=== PATIENT | male | born 1995 | race Caucasian/White ===

== ENCOUNTER 2019-11-25 15:14 | Emergency (ER) | payer OTHER, SELFPAY ==
[2019-11-25 15:15] VITALS: BP 123/79; PULSE 89; RESP 16; TEMP 36.8; O2SAT 98; BMI 31.3
--- NOTE | 2019-11-25 15:23 | XR_ITS ---
PROCEDURE: XR CHEST PORTABLE CLINICAL HISTORY: cough/respiratory symptoms COMPARISON: No exams were available for comparison FINDINGS: The cardiomediastinal silhouette and pulmonary vascularity are within normal limits. The lungs are clear without infiltrates, suspicious nodules, or pleural effusions. No acute bony abnormalities. IMPRESSION: No acute findings. Dictated by: Nura Magaña MD 11/25/2019 16:11 Electronically signed by Nura Magaña MD in [place] 11/25/2019 16:11
[2019-11-25 15:35] LABS: Basophils % 0.4 % (0.1-2.0); Eosinophils # 0.1 K/mm3 (0.0-0.4); Eosinophils % 1.1 % (0.1-12.0); Hematocrit 38.2 % (42.0-52.0); Hemoglobin 14.8 g/dL (14.1-18.0); Lymphocytes # 3.7 K/mm3 (0.7-4.5); Lymphocytes % 42.7 % (10-50); Mean Corpuscular HGB Conc 38.7 g/dL (31.8-35.4); Mean Corpuscular Hemoglobin 33.7 pg (27.0-31.2); Mean Corpuscular Volume 86.9 fl (80-94); Monocytes # 0.7 K/mm3 (0.1-1.0); Monocytes % 8.5 % (1.7-9.3); Neutrophils # 4.1 K/mm3 (1.8-7.8); Neutrophils % 47.3 % (37.0-80.0); Platelet Count 207 K/mm3 (142-424); Red Cell Distribution Width 13.5 % (11.5-17.5); White Blood Count 8.7 K/mm3 (4.8-10.8)
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
[2019-11-25 15:55] VITALS: BP 123/79; PULSE 89; RESP 16; TEMP 36.8; O2SAT 98
[2019-11-26 16:29] LABS: Covid-19 Nasal PCR Sendout Lex NOT DETECTED
--- NOTE | 2019-11-26 17:08 | PC.NURSE ---
1648-notified pt of negative COVID 19 results
== END 2019-11-25 15:55 | disposition home or self-care (01) ==
PROVIDERS: Emergency Provider Family Medicine
DX: J22 Unspecified acute lower respiratory infection (principal); Z20.828 Contact with and (suspected) exposure to other viral communicable diseases; M79.10 Myalgia, unspecified site
CPT/HCPCS: 36415; 71045; 85025; 87275; 87276; 99201; 99213; U0003

== ENCOUNTER 2020-06-16 14:32 | Emergency (ER) | payer OTHER, SELFPAY ==
--- NOTE | 2020-06-16 14:43 | HMH.EDUTC ---
[facility] [place] Disposition Clinical Impression: Viral syndrome Disposition: Home, Self-Care Condition on Discharge: Good Instructions: DI for Viral Syndrome Additional Instructions: Drink plenty of fluids. Take tylenol for pain or fever. Follow up with your regular doctor. GO TO THE ER FOR ANY WORSENING SYMPTOMS Prescriptions: Ondansetron [Zofran 4mg ODT] 4 mg PO Q8HP PRN #9 tab.rapdis PRN Reason: Nausea Transmission Status: Received by [id number] Referrals: PCP,No [Primary Care Provider] - Forms: Work/School Release Time of Disposition: 15:06 Medical Decision Making - Medical Records Medical records reviewed: No: I reviewed the patient's medical records. - Ramesh Inquiry Pt receiving controlled substance: No Vital Signs: 06/16/20 14:47 06/16/20 15:14 Temperature 98.0 F Temperature Source Oral Pulse Rate 86 Pulse Rate [Radial] 86 Respiratory Rate 18 18 Blood Pressure 128/89 Blood Pressure [Right Arm] 128/89 Blood Pressure Mean [Right Arm] 102 Blood Pressure Source Automatic Cuff Blood Pressure Source [Right Arm] Automatic Cuff Blood Pressure Position Sitting Blood Pressure Position [Right Arm] Sitting 02 Sat by Pulse Oximetry 97 Oxygen Delivery Method Room Air Room Air - Lab Data Lab Results 06/16/20 14:40: Chlamy pneumoniae PCR Not detected, Adenovirus (PCR) Not detected, B. pertussis DNA (PCR) Not detected, Coronavirus OC43 (PCR) Not detected, Coronavirus HKU1 (PCR) Not detected, Coronavirus 229E (PCR) Not detected, SARS-CoV-2 (PCR) Not detected, Coronavirus NL63 (PCR) Not detected, Human Metapneumovir PCR Not detected, Influenza A (H1) PCR Not detected, Influ A (H1N1/09) PCR Not detected, Influenza A (H3) PCR Not detected, Influenza Type A (PCR) Not detected, Influenza Type B (PCR) Not detected, M. pneumoniae (PCR) Not detected, Parainfluenza 1 (PCR) Not detected, Parainfluenza 2 (PCR) Not detected, Parainfluenza 3 (PCR) Not detected, Parainfluenza 4 (PCR) Not detected, RSV (PCR) Not detected, Entero/Rhino (PCR) Not detected [facility] [place] HPI - General Stated complaint: DAIRRHEA,BODY ACHES,COLD SWEATS Time Seen by Provider: 06/16/20 14:44 - History of Present Illness Provider Complaint: He reports that he has had body aches and feeling bad for the past 2 days. He has been around someone with covid, but its been about 10 days since he was exposed. - Related Data Previous Rx's Medication Instructions Recorded Ondansetron [Zofran 4mg ODT] 4 mg PO Q8HP PRN #9 tab.rapdis 06/16/20 Allergies Allergy/AdvReac Type Severity Reaction Status Date / Time No Known Allergies Allergy Verified 11/25/19 15:16 [facility] History - Hepatitis A Screen Attestation statement:: This patient has been screened for Hepatitis A risk factors. I have reviewed the patient's past medical history: Yes ROS Obtained: Yes All systems reviewed & no additional complaints - Constitutional Constitutional: Denies chills, Denies fever(s) - ENT Ears, Nose, Mouth, and Throat: Reports as per HPI - Cardiovascular Cardiovascular: Reports system reviewed and no additional complaints, except as docu - Respiratory Respiratory: Yes system reviewed and no additional complaints, except as docu - Gastrointestinal Gastrointestingal: Reports: system reviewed and no additional complaints, except as docu Physical Exam - General General appearance: alert, in no apparent distress - Head Head exam: atraumatic, normocephalic, normal inspection - Eye Eye exam: Present: normal appearance, PERRL, EOMI - ENT ENT exam: Present: normal exam, normal oropharynx, mucous membranes moist, TM's normal bilaterally, normal external ear exam - Neck Neck exam: Present: normal inspection, full ROM, trachea midline. Absent: meningismus, lymphadenopathy - Chest Chest inspection: Present: normal inspection, symmetric chest wall rise. Absent: tenderness - Respiratory Respiratory exam: P
[2020-06-16 14:47] VITALS: BP 128/89; PULSE 86; RESP 18; O2SAT 97; BMI 32.8
[2020-06-16 15:14] VITALS: BP 128/89; PULSE 86; RESP 18; TEMP 36.7; O2SAT 97
[2020-06-16 23:20] LABS: Adenovirus,PCR Not Detected (NotDetected); Bordetella Pertussis Not Detected (NotDetected); Chlamydophila Pneumoniae, PCR Not Detected (NotDetected); Coronavirus 19, PCR Not Detected (NotDetected); Coronavirus 229E Not Detected (NotDetected); Coronavirus NL63 Not Detected (NotDetected); Coronavirus OC43 Not Detected (NotDetected); Coronovirus HKU1,PCR Not Detected (NotDetected); Human Metapneumovirus Not Detected (NotDetected); Influenza A, PCR Not Detected (NotDetected); Influenza AH1, 2009 Not Detected (NotDetected); Influenza AH1, PCR Not Detected (NotDetected); Influenza AH3,PCR Not Detected (NotDetected); Influenza B, PCR Not Detected (NotDetected); Mycoplasma Pneumoniae, PCR Not Detected (NotDetected); Parainfluenza 1, PCR Not Detected (NotDetected); Parainfluenza 2, PCR Not Detected (NotDetected); Parainfluenza 3, PCR Not Detected (NotDetected); Parainfluenza 4, PCR Not Detected (NotDetected); Respiratory Syncytial Virus Not Detected (NotDetected); Rhinovirus/Enterovirus Not Detected (NotDetected)
[2020-06-17 19:09] LABS: UTC Influenza A Antigen Negative (Negative)
[2020-06-17 19:10] LABS: UTC Influenza B Antigen Negative (Negative)
== END 2020-06-16 15:15 | disposition home or self-care (01) ==
PROVIDERS: Emergency Provider Nurse Practitioner Family
DX: B34.9 Viral infection, unspecified (principal)
CPT/HCPCS: 87581; 87633; 87798; 87804; 99201; U0003

== ENCOUNTER 2021-02-21 16:07 | Emergency (ER) | payer OTHER, SELFPAY ==
[2021-02-21 16:10] VITALS: BP 140/89; PULSE 81; RESP 19; TEMP 36.9; O2SAT 98; BMI 33.6
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
[2021-02-21 17:13] VITALS: BP 140/89; PULSE 81; RESP 19; TEMP 36.9; O2SAT 98
== END 2021-02-21 17:20 | disposition home or self-care (01) ==
PROVIDERS: Emergency Provider Nurse Practitioner
DX: S53.402A Unspecified sprain of left elbow, initial encounter (principal); V86.55XA Driver of 3- or 4- wheeled all-terrain vehicle (ATV) injured in nontraffic accident, initial encounter; Y92.89 Other specified places as the place of occurrence of the external cause; F17.210 Nicotine dependence, cigarettes, uncomplicated
CPT/HCPCS: 73080; 99202; G0463